=== PATIENT | female | born 1990 | race Caucasian/White ===

== ENCOUNTER 2021-03-30 10:17 | Inpatient (IN) | payer BC ==
[2021-03-30] MEDS ORDERED: Bicitra 30 ML UDCUP PO PRN (10:21)
[2021-03-30] MEDS ORDERED: Famotidine/PF 20 mg/2ml Vial SLOW IVP PRN (10:21)
[2021-03-30] MEDS ORDERED: Ondansetron PF 4 MG/2 ML Vial IVP PRN ×3 (10:21→15:20)
[2021-03-30] MEDS ORDERED: hydrALAZINE 20 MG/ML VIAL SLOW IVP PRN ×2 (10:21→15:20)
[2021-03-30] MEDS ORDERED: Promethazine HCl 25 MG/ML VIAL IM PRN ×3 (10:21→15:20)
[2021-03-30] MEDS ORDERED: CEFAZOLIN 2 GM in Premix Bag 1 BAG IVPB SCH (10:30)
[2021-03-30] MEDS ORDERED: Lactated Ringer's 1,000 ML IV SCH (10:30)
[2021-03-30] MEDS ORDERED: ePHEDrine Sulfate 50 MG/10 ML VIAL ONE (11:39)
[2021-03-30] MEDS ORDERED: Ondansetron PF 4 MG/2 ML Vial ONE (11:40)
[2021-03-30] MEDS ORDERED: Dexamethasone 4 mg/ml Vial ONE (11:40)
[2021-03-30] MEDS ORDERED: Oxytocin 10 UNITS/ML VIAL ONE (11:40)
[2021-03-30] MEDS ORDERED: Ketorolac Tromethamine 30 MG/ML VIAL ONE (11:40)
[2021-03-30] MEDS ORDERED: Phenylephrine 40 MG/NS 250 ML 250 ML ONE (11:40)
[2021-03-30] MEDS ORDERED: Morphine PF 10 MG/10 ML VIAL ONE (11:44)
[2021-03-30] MEDS ORDERED: Naloxone HCl 0.4 mg/ml Vial IVP PRN ×2 (11:48)
[2021-03-30] MEDS ORDERED: HYDROmorphone 2 MG/ML VIAL SLOW IVP PRN (11:48)
[2021-03-30] MEDS ORDERED: Ondansetron HCl/PF 4 MG/2 ML Vial IVP PRN (11:48)
[2021-03-30] MEDS ORDERED: L&D-Morphine 4 MG/ML VIAL SLOW IVP PRN (11:48)
[2021-03-30] MEDS ORDERED: Hydrocerin (Eucerin) Cream 120 gm Jar TOP PRN (11:48)
[2021-03-30] MEDS ORDERED: Promethazine HCl 25 MG SUPP PR PRN (11:48)
[2021-03-30] MEDS ORDERED: diphenhydrAMINE 50 MG/ML VIAL IVP PRN (11:48)
[2021-03-30] MEDS ORDERED: Meperidine HCl/PF 25 MG/ML VIAL SLOW IVP PRN (11:48)
[2021-03-30] MEDS ORDERED: Naloxone HCl 0.4 mg/ml Vial IV PRN (11:48)
[2021-03-30 11:54] LABS: Hemoglobin 11.9 g/dL (12.0-15.5); Mean Corpuscular HGB CONC 31.7 g/dL (32.0-36.0); Mean Corpuscular Hemoglobin 27.1 pg (27.0-33.0); Mean Corpuscular Volume 85.4 fl (81.6-98.3); Mean Platelet Volume 11.7 fl (7.4-10.4); Platelet Count 246 10x3/uL (150-450); RBC Distribution Width 14.7 % (11.5-14.5); Red Blood Cell (RBC) Count 4.39 10x6/uL (3.90-5.03); White Blood Cell (WBC) Count 7.6 10x3/uL (3.5-10.5)
[2021-03-30] MEDS ORDERED: Ketorolac Tromethamine 30 MG/ML VIAL IVP SCH (12:00)
[2021-03-30] MEDS ORDERED: Communication Order-Pharmacy FS SCH (12:00)
[2021-03-30 12:25] LABS: Hep B Surf Ag Non-Reactive S/CO (NonReactive); Syphilis Antibody Nonreactive (Nonreactive); Syphilis Antibody Index 0.05 S/CO (<1.00 Non-Reactive)
[2021-03-30] MEDS ORDERED: PHENYLEPHRINE-NS 100 MCG/ML 10 ML SYRINGE ONE (12:26)
[2021-03-30] MEDS ORDERED: Labetalol HCl 100 MG/20 ML VIAL ONE (12:26)
[2021-03-30] MEDS ORDERED: Glycopyrrolate 0.2 MG/ML 5 ML SYRINGE ONE (12:26)
[2021-03-30] MEDS ORDERED: Misoprostol 200 MCG TAB PR PRN (15:20)
[2021-03-30] MEDS ORDERED: Lanolin Ointment 7 GM TUBE TOP PRN (15:20)
[2021-03-30] MEDS ORDERED: NS w/ Oxytocin 30 units 500 ML IV SCH (15:20)
[2021-03-30] MEDS ORDERED: Measles/Mumps/Rubella 10 MCG/0.5 ML VIAL SC ONE (15:20)
[2021-03-30] MEDS ORDERED: Varicella virus, LIVE 0.5 ML VIAL SC ONE (15:20)
[2021-03-30] MEDS ORDERED: Bisacodyl 10 MG SUPP PR PRN (15:20)
[2021-03-30] MEDS ORDERED: HYDROcodone/Acetaminophen 5/325 mg Tablet PO PRN ×4 (15:20→23:59)
[2021-03-30] MEDS ORDERED: Boostrix 0.5 ML (Tdap) VIAL IM ONE (15:20)
[2021-03-30] MEDS ORDERED: NS w/ Oxytocin 30 units 500 ML ONE (15:26)
[2021-03-30 15:43] VITALS: BMI 27.1
[2021-03-30] MEDS: Ketorolac Tromethamine 30 MG/ML VIAL IVP PRN (18:31)
[2021-03-30] MEDS: Docusate Calcium (SURFAK) 240 MG CAP PO SCH (21:00)
[2021-03-31] MEDS: Ketorolac Tromethamine 30 MG/ML VIAL IVP PRN ×2 (00:19→09:22)
[2021-03-31 06:38] LABS: Hemoglobin 10.7 g/dL (12.0-15.5); Mean Corpuscular HGB CONC 31.8 g/dL (32.0-36.0); Mean Corpuscular Volume 84.6 fl (81.6-98.3); Mean Platelet Volume 11.4 fl (7.4-10.4); Platelet Count 260 10x3/uL (150-450); RBC Distribution Width 14.6 % (11.5-14.5); Red Blood Cell (RBC) Count 3.97 10x6/uL (3.90-5.03); White Blood Cell (WBC) Count 14.7 10x3/uL (3.5-10.5)
[2021-03-31] MEDS: Docusate Calcium (SURFAK) 240 MG CAP PO SCH ×2 (09:21→21:08)
[2021-03-31] MEDS: Prenatal Vitamin 1 TAB PO SCH (09:21)
[2021-03-31] MEDS: Simethicone Chewable 80 MG TAB PO PRN ×2 (09:35→21:30)
[2021-03-31] MEDS: Ibuprofen 800 MG TAB PO SCH ×2 (15:06→23:40)
[2021-04-01] MEDS: Docusate Calcium (SURFAK) 240 MG CAP PO SCH (07:55)
[2021-04-01] MEDS: Prenatal Vitamin 1 TAB PO SCH (07:55)
[2021-04-01 07:56] VITALS: BP 121/68; TEMP 98.7
[2021-04-01] MEDS: Ibuprofen 800 MG TAB PO SCH (07:57)
[2021-04-01] MEDS: Simethicone Chewable 80 MG TAB PO PRN (08:56)
== END 2021-04-01 12:01 | disposition home or self-care (01) | DRG 788 ==
LOC: CSHLD 10:17 → CSHPP 15:15
PROVIDERS: ADMIT Obstetrics & Gynecology; ATTEND Obstetrics & Gynecology
PROC: 10D00Z1 Extraction of Products of Conception, Low, Open Approach (ICD-10-PCS; principal; 2021-03-30)
PROC: 0UB90ZZ Excision of Uterus, Open Approach (ICD-10-PCS; 2021-03-30)
DX: O34.211 Maternal care for low transverse scar from previous cesarean delivery (principal); O34.13 Maternal care for benign tumor of corpus uteri, third trimester; D25.9 Leiomyoma of uterus, unspecified; Z3A.39 39 weeks gestation of pregnancy; Z37.0 Single live birth
CPT/HCPCS: 36415; 51702; 85027; 86780; 86850; 86900; 86901; 87340; 88305; 99285; J0690; J1100; J1885; J2274; J2405; J2590